=== PATIENT | female | born 1935 ===

== ENCOUNTER 2019-04-01 13:33 | Outpatient (RCR) | payer MEDICARE | END 2019-04-04 | disposition home or self-care (01) | LOC: WCC 13:33 | DX: G60.3 Idiopathic progressive neuropathy (principal); E11.40 Type 2 diabetes mellitus with diabetic neuropathy, unspecified; M50.30 Other cervical disc degeneration, unspecified cervical region; R62.7 Adult failure to thrive; Z86.718 Personal history of other venous thrombosis and embolism; Z86.711 Personal history of pulmonary embolism; E11.22 Type 2 diabetes mellitus with diabetic chronic kidney disease; N18.9 Chronic kidney disease, unspecified; Z79.84 Long term (current) use of oral hypoglycemic drugs; Z79.01 Long term (current) use of anticoagulants | CPT/HCPCS: 82962; G0463 ==

== ENCOUNTER 2019-04-01 13:39 | Outpatient (RCR) | payer SELFPAY | END 2019-04-04 | disposition home or self-care (01) | LOC: WCC 13:39 | DX: G60.3 Idiopathic progressive neuropathy (principal); E11.40 Type 2 diabetes mellitus with diabetic neuropathy, unspecified; M50.30 Other cervical disc degeneration, unspecified cervical region; R62.7 Adult failure to thrive; Z86.718 Personal history of other venous thrombosis and embolism; Z86.711 Personal history of pulmonary embolism; E11.22 Type 2 diabetes mellitus with diabetic chronic kidney disease; N18.9 Chronic kidney disease, unspecified; Z79.84 Long term (current) use of oral hypoglycemic drugs; Z79.01 Long term (current) use of anticoagulants ==